=== PATIENT | female | born 1970 | race African-American/Black ===

== ENCOUNTER 2017-03-20 17:07 | Emergency (ER) | payer MEDICAID ==
[2017-03-20 17:18] VITALS: BP 199/116
--- NOTE | 2017-03-20 17:47 | EDM.PDOC ---
ED HPI GENERAL MEDICAL PROBLEM - General Chief Complaint: Allergic Reaction Stated Complaint: POSSIBLE ALLERGIC REACTION TO CLEANING CHEMICALS Time Seen by Provider: 03/20/17 17:17 Source of Information: Reports: Patient History Limitations: Reports: No Limitations - History of Present Illness INITIAL COMMENTS - FREE TEXT/NARRATIVE: The patient presents with a possible allergic reaction. She has a generalized rash that started a few days ago. She also has some itching with the rash and in her scalp and some of her hair has been falling out. 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 She has been under lots of stress recently. She has no new soaps, lotions or shampoos. Onset: Gradual Duration: Day(s): (3) Location: Reports: Generalized Severity: Moderate Improves with: Reports: None Worsens with: Reports: None Context: Reports: Activity (She was working with a cleaning [email or web address]) Associated Symptoms: Reports: No Other Symptoms - Related Data Allergies Allergy/AdvReac Type Severity Reaction Status Date / Time No Known Allergies Allergy Verified 08/02/16 07:36 Home Meds: Home Meds ALPRAZolam [Xanax] 2 mg PO DAILY 12/23/14 [History] Hydrocodone/Acetaminophen [Vicodin 5-300 mg Tablet] 2 each PO ASDIRECTED PRN [History] Lisinopril. 1 tab PO BID 12/23/14 [History] Ibuprofen [Motrin] 600 mg PO Q6H #20 tablet 05/31/15 [Rx] ALPRAZolam [Xanax] 1 mg PO TID PRN #20 tablet 03/20/17 [Rx] Prednisone [IJD: predniSONE] 40 mg PO WITHBREAKFAST #10 tab 03/20/17 [Rx] Past Medical History - Past Health History Medical/Surgical History: Denies Medical/Surgical History Cardiovascular History: Reports: Hypertension Musculoskeletal History: Reports: Back Pain, Chronic, Osteoarthritis Psychiatric History: Reports: Anxiety Social & Family History - Tobacco Use Smoking Status *Q: Never Smoker Second Hand Smoke Exposure: No - Caffeine Use Caffeine Use: Reports: Coffee, Energy Drinks, Soda, Tea - Alcohol Use Days Per Week of Alcohol Use: 0 - Recreational Drug Use Recreational Drug Use: No ED ROS ALLERGIC REACTION - Review of Systems Review Of Systems: See Below Constitutional: Reports: No Symptoms HEENT: Reports: No Symptoms Respiratory: Reports: No Symptoms Cardiovascular: Reports: No Symptoms Endocrine: Reports: No Symptoms GI/Abdominal: Reports: No Symptoms : Reports: No Symptoms Musculoskeletal: Reports: No Symptoms Skin: Reports: Rash (white patchest that are itching) ED EXAM GENERAL NO PERIP PULSE - Physical Exam Exam: See Below Exam Limited By: No Limitations General Appearance: Alert, No Apparent Distress Ears: Normal External Exam Nose: Normal Inspection Head: Atraumatic, Normocephalic Neck: Normal Inspection Respiratory/Chest: No Respiratory Distress, Lungs Clear, Normal Breath Sounds Cardiovascular: Regular Rate, Rhythm, No Edema, No Murmur GI/Abdominal: Soft, Non-Tender, No Organomegaly, No Mass Back Exam: Normal Inspection Extremities: Normal Inspection Skin Exam: Rash (Generalized white macular rash. She also has some hair loss.) Course - Vital Signs Last Recorded V/S: Last Vital Signs Temp 98.2 F 03/20/17 17:15 Pulse 105 H 03/20/17 17:15 Resp 20 03/20/17 17:15 BP 199/116 H 03/20/17 17:15 Pulse Ox 100 03/20/17 17:15 - Re-Assessments/Exams Free Text/Narrative Re-Assessment/Exam: 03/20/17 17:50 I will get her on a steroid, benadryl and pepcid. She is out of her xanax. I will give her some of that. Departure - Departure Time of Disposition: 17:55 Disposition: Home, Self-Care 01 Condition: good Clinical Impression: Anxiety Allergic reaction Qualifiers: Encounter type: initial encounter Qualified Code(s): T78.40XA - Allergy, unspecified, initial encounter - Discharge Information Prescriptions: ALPRAZolam [Xanax] 1 mg PO TID PRN #20 tablet PRN Reason: Anxiety Prednisone [IJD: predniSONE] 40 mg PO WITHBREAKFAST #10 tab Referrals: Rosalina Gabriel DO [Primary Care Provider] - 1 Week Forms: ED Department Discharge Additional Instructions: Take the prednisone 2 pills daily for 5 days. Take benadryl 50mg every 6 hours as needed for itching. Take pepcid daily for 5 days. Take the xanax as needed for your anxiety. Please return if you are worse.
== END 2017-03-20 18:15 | disposition home or self-care (01) ==
LOC: JD.ED 17:07
DX: T78.40XA Allergy, unspecified, initial encounter (principal); F41.9 Anxiety disorder, unspecified; M19.90 Unspecified osteoarthritis, unspecified site; I10 Essential (primary) hypertension; M54.9 Dorsalgia, unspecified; G89.29 Other chronic pain
CPT/HCPCS: 99283

== ENCOUNTER 2017-03-28 14:06 | Emergency (ER) | payer MEDICAID ==
[2017-03-28 15:05] VITALS: BP 138/81
--- NOTE | 2017-03-28 15:07 | EDM.PDOC ---
ED HPI GENERAL MEDICAL PROBLEM - General Chief Complaint: Laceration Stated Complaint: Laceration Time Seen by Provider: 03/28/17 14:55 Source of Information: Reports: Patient, RN Notes Reviewed History Limitations: Reports: No Limitations - History of Present Illness INITIAL COMMENTS - FREE TEXT/NARRATIVE: 46 year old female presents to the ED with a laceration to her right MCP joint of the ring finger. She cut her finger on a bbq grill tool last evening around 2130. She has full movement of her MCP joint. She is unable to extend her PIP joint of that finger but says this is chronic. No numbness or tingling. Her last tetanus was about 1 year ago. Right 4-Ring finger Pain Score (Numeric/FACES): 10 - Related Data Allergies Allergy/AdvReac Type Severity Reaction Status Date / Time No Known Allergies Allergy Verified 08/02/16 07:36 Home Meds: Home Meds Lisinopril. 40 mg PO DAILY 12/23/14 [History] Ibuprofen [Motrin] 600 mg PO Q6H #20 tablet 05/31/15 [Rx] Prednisone [IJD: predniSONE] 40 mg PO WITHBREAKFAST #10 tab 03/20/17 [Rx] Past Medical History - Past Health History Medical/Surgical History: Denies Medical/Surgical History Cardiovascular History: Reports: Hypertension Musculoskeletal History: Reports: Back Pain, Chronic, Osteoarthritis Psychiatric History: Reports: Anxiety Social & Family History - Tobacco Use Smoking Status *Q: Never Smoker Second Hand Smoke Exposure: No - Caffeine Use Caffeine Use: Reports: Coffee, Energy Drinks, Soda, Tea - Alcohol Use Days Per Week of Alcohol Use: 0 - Recreational Drug Use Recreational Drug Use: No ED ROS GENERAL - Review of Systems Review Of Systems: See Below Constitutional: Reports: No Symptoms. Denies: Fever Skin: Reports: Wound Neurological: Reports: No Symptoms. Denies: Numbness, Tingling, Weakness ED EXAM, SKIN/RASH Exam: See Below Exam Limited By: No Limitations General Appearance: Alert, WD/WN, No Apparent Distress Extremities: Normal Inspection, Normal Range of Motion, Non-Tender Neurological: Alert, Normal Cognition, No Motor/Sensory Deficits Skin: Warm, Dry, Normal Color, Other (2cm horse shoe shaped laceration over the right ring finger MCP joint. There is no muscle or tendon involvement. The wound is clean with no debris. No redness, drainage or erythema. The wound is gaping about 0.5cm. ) Course - Vital Signs Last Recorded V/S: Last Vital Signs Temp 96.8 F 03/28/17 15:04 Pulse 105 H 03/28/17 15:04 Resp 20 03/28/17 15:04 BP 138/81 03/28/17 15:04 Pulse Ox 99 03/28/17 15:04 - Re-Assessments/Exams Free Text/Narrative Re-Assessment/Exam: The injury occurred around 2130 last evening. Due to high risk for infection, sutures are not indicated. The wound was thoroughly cleansed then steri strips applied. Patient was placed in a wrist cockup splint to avoid movement of the MCP joint until healed. Educated on wound care and return precautions. Discharge instructions as documented. Departure - Departure Time of Disposition: 15:44 Disposition: Home, Self-Care 01 Condition: Good Clinical Impression: Laceration - Discharge Information Instructions: Laceration Care, Adult Referrals: Rosalina Gabriel, [Primary Care Provider] - Forms: ED Department Discharge Additional Instructions: Laceration with suture repair Try to keep initial dressing in place for 24 hours After 24 hours, you can gently wash the wound with gentle soap and water Do not submerge the area in water for 1 week, showering is ok Apply antibiotic ointment and keep the wound covered for first 2-3 days then leave open to air Keep wound covered if there is a chance it can get dirty Wear splint for 1 week to avoid re-opening the wound Return to clinic if signs or symptoms of infection arise, including increased redness, swelling, drainage, or fever Tylenol or Ibuprofen as needed for pain
== END 2017-03-28 15:58 | disposition home or self-care (01) ==
LOC: JD.ED 14:06
DX: S61.214A Laceration without foreign body of right ring finger without damage to nail, initial encounter (principal); I10 Essential (primary) hypertension; M19.90 Unspecified osteoarthritis, unspecified site; F41.9 Anxiety disorder, unspecified; X58.XXXA Exposure to other specified factors, initial encounter
CPT/HCPCS: 99282; 99283

== ENCOUNTER 2017-06-28 23:15 | Emergency (ER) | payer MEDICAID ==
[2017-06-28 23:25] VITALS: BP 180/115
--- NOTE | 2017-06-29 00:29 | EDM.PDOC ---
ED HPI GENERAL MEDICAL PROBLEM - General Chief Complaint: Chest Pain Stated Complaint: CHEST PAIN HIGH BLOOD PRESSURE Time Seen by Provider: 06/29/17 00:00 Source of Information: Reports: Patient, RN Notes Reviewed, Other (Friend) History Limitations: Reports: No Limitations - History of Present Illness INITIAL COMMENTS - FREE TEXT/NARRATIVE: The patient states that she developed lightheadedness and left-sided chest pain , a sharp sensation felt under the lateral aspect of her left breast, around 23: 00 tonight, during a verbal argument. The patient's symptoms significantly improved after she calmed down, although she is not complaining of a headache. The chest pain was not pleuritic, and she did not identify any modifiers. She had some shortness of breath, but no nausea, vomiting, or diaphoresis. No prior similar symptoms. The patient's PCP is Dr. Rosalina Gabriel. Left Chest Pain Score (Numeric/FACES): 7 - Related Data Allergies Allergy/AdvReac Type Severity Reaction Status Date / Time No Known Allergies Allergy Verified 08/02/16 07:36 Home Meds: Home Meds Lisinopril. 40 mg PO DAILY 12/23/14 [History] Aspirin [Halfprin] 81 mg PO DAILY 06/28/17 [History] Past Medical History Cardiovascular History: Reports: High Cholesterol (untreated), Hypertension ( untreated) Genitourinary History: Reports: Urinary Incontinence (stress incontience) Musculoskeletal History: Reports: Back Pain, Chronic, Osteoarthritis Psychiatric History: Reports: Anxiety (untreated) - Past Surgical History Musculoskeletal Surgical History: Reports: Ganglion Cyst (right wrist) Social & Family History - Tobacco Use Smoking Status *Q: Never Smoker Second Hand Smoke Exposure: No - Caffeine Use Caffeine Use: Reports: Coffee, Energy Drinks, Soda, Tea - Alcohol Use Alcohol Use History: Yes Days Per Week of Alcohol Use: 0 Alcohol Use Frequency: Socially - Recreational Drug Use Recreational Drug Use: Yes Drug Use in Last 12 Months: Yes Recreational Drug Type: Reports: Marijuana/Hashish Recreational Drug Use Frequency: Socially - Living Situation & Occupation Living situation: Reports: (), Other (Friend) Occupation: Unemployed ED ROS GENERAL - Review of Systems Review Of Systems: See Below Constitutional: Reports: No Symptoms HEENT: Reports: No Symptoms Respiratory: Reports: No Symptoms Cardiovascular: Reports: No Symptoms Endocrine: Reports: No Symptoms GI/Abdominal: Reports: No Symptoms : Reports: No Symptoms Musculoskeletal: Reports: No Symptoms Skin: Reports: No Symptoms Neurological: Reports: No Symptoms Psychiatric: Reports: No Symptoms Hematologic/Lymphatic: Reports: No Symptoms Immunologic: Reports: No Symptoms ED EXAM, GENERAL - Physical Exam Exam: See Below Exam Limited By: No Limitations General Appearance: Alert, WD/WN, No Apparent Distress Eye Exam: Bilateral Eye: Normal Inspection Ears: Normal External Exam, Hearing Grossly Normal Nose: Normal Inspection, No Blood Throat/Mouth: Normal Inspection, Normal Lips, Normal Voice, No Airway Compromise Head: Atraumatic, Normocephalic Neck: Normal Inspection, Full Range of Motion Respiratory/Chest: No Respiratory Distress, Lungs Clear, Normal Breath Sounds, No Accessory Muscle Use, Other (Reproducible tenderness to palpation of the sixth intercostal space left anterior axillary line) Cardiovascular: Normal Peripheral Pulses, Regular Rate, Rhythm, No Gallop, No JVD, No Murmur, No Rub Peripheral Pulses: 4+: Radial (L), Radial (R) GI/Abdominal: Normal Bowel Sounds, Soft, Non-Tender, No Organomegaly, No Distention, No Abnormal Bruit, No Mass (Female) Exam: Deferred Rectal (Female) Exam: Deferred Back Exam: Normal Inspection, Full Range of Motion, NT Extremities: Normal Inspection, Normal Range of Motion, No Pedal Edema, Normal Capillary Refill Neurological: Alert, Oriented, Normal Cognition, No Motor/Sensory Deficits Psychiatric: Normal Affect Skin Exam: Warm, Dry, Intact, Normal Color, No Rash EKG INTERPRETATION EKG Date: 06/28/17 Time: 23:22 Rhythm: NSR Rate (Beats/Min): 82 [place]: Normal P-Wave: Enlarged (left atrial) QRS: Normal ST-T: Other (Diffuse J-piont elevation) QT: Normal Comparison: NA - No Prior EKG Course - Vital Signs Last Recorded V/S: Last Vital Signs Temp 37.1 C 06/28/17 23:24 Pulse 81 06/28/17 23:24 Resp 20 06/28/17 23:24 BP 180/115 H 06/28/17 23:24 Pulse Ox 99 06/28/17 23:24 - Orders/Labs/Meds Orders: Active Orders 24 hr Category Date Time Status EKG 12 Lead [EKG Documentation Completion] [RC] STAT Care 06/28/17 23:25 Active - Re-Assessments/Exams Free Text/Narrative Re-Assessment/Exam: 06/29/17 00:21 The patient developed lightheadedness and left-sided chest pain while having a verbal argument earlier tonight. Her symptoms have significantly improved since she has calmed down. Her left chest pain is reproducible with palpation, consistent with an intercostal muscle spasm. Her ECG is normal. I do not believe that further workup is indicated. The patient's blood pressure is elevated here in the ED, and she has been treated for hypertension in the past, although was not currently on any medication. I explained to the patient how she can test to see if she really has hypertension, and advised that if she does, that she be treated for it. Departure - Departure Time of Disposition: 00:23 Disposition: Home, Self-Care 01 Condition: Good Clinical Impression: Muscle spasm, Episodic lightheadedness, Elevated blood pressure reading - Discharge Information Instructions: Muscle Cramps and Spasms, [id number], Hypertension Referrals: Rosalina Gabriel, [Primary Care Provider] - Forms: ED Department Discharge Additional Instructions: You were seen in the emergency room for lightheadedness and left-sided chest pain that developed during an argument. Your symptoms improved once you calmed down. Your left sided chest pain is MOST LIKELY due to a spasm of a muscle in between your ribs. Take [id number] Tylenol or ibuprofen as needed for discomfort. Your blood pressure was found to be elevated in the ER. You may have hypertension. To determine if you have hypertension, check your blood pressure 2 -3 times a week for 2-3 weeks, and write the numbers down. It is imperative that you check your blood pressure only when you are under restful conditions, meaning you are sitting quietly for at least 5, and preferably 15 minutes, the you are not sick, in pain, or anxious. Take these numbers to your PCP, Dr. Rosalina Gabriel, when you follow-up. If any other problems, please do not hesitate to return to the ER. - My Orders Last 24 Hours: My Active Orders 06/28/17 23:25 EKG 12 Lead [EKG Documentation Completion] [RC] STAT - Assessment/Plan Last 24 Hours: My Active Orders 06/28/17 23:25 EKG 12 Lead [EKG Documentation Completion] [RC] STAT
== END 2017-06-29 00:35 | disposition home or self-care (01) ==
LOC: JD.ED 23:15
DX: M62.838 Other muscle spasm (principal); R42 Dizziness and giddiness; I10 Essential (primary) hypertension; M19.90 Unspecified osteoarthritis, unspecified site; E78.00 Pure hypercholesterolemia, unspecified; Z98.890 Other specified postprocedural states; Z79.82 Long term (current) use of aspirin; Z79.899 Other long term (current) drug therapy
CPT/HCPCS: 93005; 93010; 99284; 99284-25

== ENCOUNTER 2019-10-01 16:48 | Emergency (ER) | payer MEDICAID ==
[2019-10-01 16:57] VITALS: BP 140/77; PULSE 91
[2019-10-01] MEDS ORDERED: Ketorolac 60 MG/2 ML SDV IM ONE (17:02)
--- NOTE | 2019-10-01 17:05 | EDM.PDOC ---
ED HPI GENERAL MEDICAL PROBLEM - General Chief Complaint: Back Pain or Injury Stated Complaint: BACK PAIN Time Seen by Provider: 10/01/19 16:56 Source of Information: Reports: Patient History Limitations: Reports: No Limitations - History of Present Illness INITIAL COMMENTS - FREE TEXT/NARRATIVE: Patient's unfortunate 48-year-old black female who presents emergency Department today with complaint of low back pain. Patient reports she was in her normal state of health until approximately is ago she started having left lower back pain. Patient reports pain is worse with ambulation or palpation improves with rest does not alleviate. No fever no chills no saddle anesthesia no loss of bowel or bladder function Middle Back Pain Score (Numeric/FACES): 10 - Related Data Allergies Allergy/AdvReac Type Severity Reaction Status Date / Time No Known Allergies Allergy Verified 08/02/16 07:36 Home Meds: Home Meds Lisinopril. 40 mg PO DAILY 12/23/14 [History] Aspirin [Halfprin] 81 mg PO DAILY 06/28/17 [History] Acetaminophen with Codeine [Tylenol with Codeine #3 Tablet] 1 each PO Q4H PRN # 20 tablet 10/01/19 [Rx] Cyclobenzaprine [Flexeril] 10 mg PO TID PRN #15 tab 10/01/19 [Rx] Past Medical History - Past Health History Medical/Surgical History: Denies Medical/Surgical History Cardiovascular History: Reports: High Cholesterol, Hypertension Genitourinary History: Reports: Urinary Incontinence Musculoskeletal History: Reports: Back Pain, Chronic, Osteoarthritis Psychiatric History: Reports: Anxiety - Past Surgical History Musculoskeletal Surgical History: Reports: Ganglion Cyst Social & Family History - Tobacco Use Smoking Status *Q: Never Smoker Second Hand Smoke Exposure: No - Caffeine Use Caffeine Use: Reports: None - Recreational Drug Use Recreational Drug Use: No - Living Situation & Occupation Living situation: Reports: (), Other (Friend) Occupation: Unemployed ED ROS GENERAL - Review of Systems Review Of Systems: See Below Constitutional: Denies: Fever, Chills Musculoskeletal: Reports: Back Pain ED EXAM,LOWER BACK PAIN/INJURY - Physical Exam Exam: See Below Exam Limited By: No Limitations General Appearance: Alert, WD/WN, Mild Distress Ears: Normal External Exam, Normal Canal, Hearing Grossly Normal, Normal TMs Nose: Normal Inspection, Normal Mucosa, No Blood Head: Atraumatic, Normocephalic Neck: Normal Inspection, Supple, Non-Tender, Full Range of Motion Respiratory/Chest: No Respiratory Distress, Lungs Clear, Normal Breath Sounds, No Accessory Muscle Use, Chest Non-Tender Cardiovascular: Normal Peripheral Pulses, Regular Rate, Rhythm, No Edema, No Gallop, No JVD, No Murmur, No Rub GI/Abdominal: Normal Bowel Sounds, Soft, Non-Tender, No Organomegaly, No Distention, No Abnormal Bruit, No Mass Back Exam: Other (I lateral paraspinous muscle tenderness L4-L5 level left side radiates to SI joint, normal DTRs, negative leg lift bilaterally, no muscle spasm) Neurological: Alert Skin Exam: Warm, Dry, No Rash Course - Vital Signs Last Recorded V/S: Last Vital Signs Temp 97.2 F 10/01/19 16:54 Pulse 91 10/01/19 16:54 Resp 16 10/01/19 16:54 BP 140/77 10/01/19 16:54 Pulse Ox 99 10/01/19 16:54 - Orders/Labs/Meds Orders: Active Orders 24 hr Category Date Time Status Lumbar Spine Min 4V [CR] Stat Exams 10/01/19 17:02 Ordered Labs: Laboratory Tests 10/01/19 Range/Units 17:15 HCG, Qual Negative (NEGATIVE) Meds: Medications Discontinued Medications Generic Name Dose Route Start Last Admin Trade Name Freq PRN Reason Stop Dose Admin Ketorolac Tromethamine 60 mg 10/01/19 17:02 10/01/19 17:06 Toradol IM 10/01/19 17:03 60 mg ONETIME ONE Administration - Re-Assessments/Exams Free Text/Narrative Re-Assessment/Exam: 10/01/19 18:20 Lumbar spine interpreted by me NAD Departure - Departure Time of Disposition: 18:20 Disposition: Home, Self-Care 01 Clinical Impression: Lumbar strain Qualifiers: Encounter type: initial encounter Qualified Code(s): S39.012A - Strain of muscle, fascia and tendon of lower back, initial encounter - Discharge Information *PRESCRIPTION DRUG MONITORING PROGRAM REVIEWED*: Yes *COPY OF PRESCRIPTION DRUG MONITORING REPORT IN PATIENT SHANELLE: No Prescriptions: Acetaminophen with Codeine [Tylenol with Codeine #3 Tablet] 1 each PO Q4H PRN # 20 tablet PRN Reason: Pain Cyclobenzaprine [Flexeril] 10 mg PO TID PRN #15 tab PRN Reason: Pain Instructions: Lumbosacral Strain Referrals: PCP,None [Primary Care Provider] - Forms: ED Department Discharge, ED Return to Work/School Form Additional Instructions: Home, rest, heating pad 20 minutes at a time 3-4 times a day, avoid bending at the waist, no lifting greater than 10 pounds for one week, return as needed for worsening condition Sepsis Event Note - Evaluation Sepsis Screening Result: No Definite Risk - Focused Exam Vital Signs: Vital Signs Temp Pulse Resp BP Pulse Ox 10/01/19 16:54 97.2 F 91 16 140/77 99 Date Exam was Performed: 10/01/19 Time Exam was Performed: 18:19 - My Orders Last 24 Hours: My Active Orders 10/01/19 17:02 Lumbar Spine Min 4V [CR] Stat - Assessment/Plan Last 24 Hours: My Active Orders 10/01/19 17:02 Lumbar Spine Min 4V [CR] Stat
--- NOTE | 2019-10-02 09:18 | CR ---
Lumbar spine: AP, lateral and oblique views of the lumbar spine were obtained. Coned down lateral view also was obtained centered to the lumbosacral junction. Comparison: No prior lumbar spine imaging is available. Findings: Vertebral body heights and disc spaces are felt to be maintained. Minimal scattered endplate osteophytes are seen. No spondylolisthesis is seen. No spondylolysis is noted. Pedicles as well as transverse and spinous processes are intact. Sacroiliac joints appear within normal limits. Impression: 1. Mild scattered endplate osteophytes. 2. No additional abnormality is appreciated on lumbar spine exam. Diagnostic code #2 This report was dictated in [place] Standard Time
== END 2019-10-01 18:30 | disposition home or self-care (01) ==
LOC: JD.ED 16:48
DX: S39.012A Strain of muscle, fascia and tendon of lower back, initial encounter (principal); I10 Essential (primary) hypertension; Z79.82 Long term (current) use of aspirin; Z79.899 Other long term (current) drug therapy; X58.XXXA Exposure to other specified factors, initial encounter
CPT/HCPCS: 36415; 72110; 84703; 96372; 99283; J1885